=== PATIENT | male | born 1945 | race Caucasian/White ===

== ENCOUNTER 2017-12-18 14:36 | Emergency (ER) | payer OTHER, MEDICARE ==
[~2017-12-18] VITALS: Ht 172.7 cm; Wt 85.0 kg
[2017-12-18 14:52] VITALS: TEMP 36.9; Ht 172.7 cm; Wt 85.0 kg
[2017-12-18] MEDS ORDERED: OXYCODONE HCL IR 5 MG TAB (IMMEDIATE RELEASE) PO STA (15:10)
[2017-12-18] MEDS ORDERED: FLUT0.15 NAE (15:30)
[2017-12-18] MEDS ORDERED: OMEP-331 PO (15:30)
[2017-12-18] MEDS ORDERED: HYDR12.55 PO (15:30)
[2017-12-18] MEDS ORDERED: ATEN50TA8 PO (15:30)
[2017-12-18] MEDS ORDERED: GUAI1TAB55 PO (15:30)
[2017-12-18] MEDS ORDERED: MELO-83 PO (15:30)
[2017-12-18] MEDS ORDERED: AMLO-110 PO (15:30)
[2017-12-18] MEDS ORDERED: ASPI81TA28 PO (15:30)
[2017-12-18] MEDS ORDERED: LOSA100T65 PO (15:30)
--- NOTE | 2017-12-18 16:08 | DIAGNOSTIC IMAGING REPORT ---
L HIP UNILATERAL 2 VIEWS, PELVIS 1 OR 2 VIEW ROUTINE HISTORY: 72 years-old Male L hip pain - s/p YARIEL acute pelvis and left hip pain COMPARISON: None available TECHNIQUE: Single AP view of the pelvis with 2 views of the left hip FINDINGS: PELVIS: The bones appear mildly demineralized. Left hip arthroplasty with satisfactory alignment. Moderate right hip osteoarthritis with degenerative changes also seen within the SI joints and pubic symphysis with severe degenerative changes at L4-L5 and L5-S1. No pelvic ring fracture identified. Phleboliths of the pelvis. LEFT HIP: Left hip arthroplasty without evidence of complication. Mild soft tissue swelling about the left hip without opaque foreign body. Imaged left hemipelvis appears intact. IMPRESSION: 1. Mild soft tissue swelling about the left hip without acute fracture or dislocation. 2. Left hip arthroplasty in satisfactory alignment. The above report was generated using voice recognition software. It may contain grammatical, syntax or spelling errors. Electronically signed by: Fabien Banerjee M.D. 12/18/2017 4:06 PM Dictated Date/Time: 12/18/2017 4:04 PM
--- NOTE | 2017-12-18 16:13 | DIAGNOSTIC IMAGING REPORT ---
R RIBS UNILATERAL WITH PA CHEST HISTORY: 72 years-old Male R rib pain acute right-sided rib pain COMPARISON: None available TECHNIQUE: AP view of the chest with 4 views of the right ribs FINDINGS: There is widening of the mediastinum measuring up to 1.6 cm transversely. Atherosclerosis of the aorta. Lungs are hypoinflated with mild bronchovascular crowding and subsegmental bibasilar atelectasis. No pneumothorax, pleural effusion or overt pulmonary edema. Bones of the chest appear grossly intact. Mild levoscoliosis of the midthoracic spine with severe osteoarthritis about the left shoulders. There are suggested loose bodies about the left axillary recess and right subscapularis recess with suggested calcific tendinosis about the right shoulder rotator cuff. There are acute fractures without significant displacement involving the posterior lateral right 9th and 10th ribs IMPRESSION: 1. Hypoinflation with bibasilar atelectasis and mediastinal widening. 2. Acute fractures of the right posterolateral 9th and 10th ribs without significant displacement or pneumothorax. The above report was generated using voice recognition software. It may contain grammatical, syntax or spelling errors. Electronically signed by: Fabien Banerjee M.D. 12/18/2017 4:11 PM Dictated Date/Time: 12/18/2017 4:06 PM
[2017-12-18] MEDS ORDERED: OXYC1TAB3 PO (17:08)
[2017-12-18 17:46] VITALS: BP 189/99; PULSE 67; O2SAT 98
--- NOTE | 2017-12-18 23:36 | EMERGENCY ROOM VISIT NOTE ---
ED Visit Note First contact with patient: 15:03 I reviewed the patient's past medical history, medications, and visit nursing notes. I discussed the case with the physician bus assistant, examined the patient, and agree with the findings and plan as documented in the physician assistants note.
--- NOTE | 2017-12-19 00:44 | EMERGENCY ROOM VISIT NOTE ---
History First contact with patient: 15:03 Chief Complaint: HIP PAIN Stated Complaint: LEFT HIP PAIN, RIB PAIN History of Present Illness The patient is a 72 year old male who presents to the Emergency Room with complaints of injuries after he stumbled and fell while fly fishing. The patient reports that he turned and is pretty sure that his left hip dislocated. On the patient went down, he fell onto his right side, and complains mostly of right rib pain. He also reports mild right hip pain as well. The patient reports that the pain is worsened with movement and deep breathing. He denies any shortness of breath, chest tightness, back pain, abdominal pain, neck pain or head injury. The patient does not take blood thinners. The patient has a prior history of left hip replacement and right knee replacement. He denies any right knee pain. The patient rates his discomfort a 10 out of 10. Review of Systems HEENT: Denies dizziness, visual problems, hearing loss, tinnitus. Denies difficulty swallowing or oral lesions. PULMONARY: Denies cough, shortness of breath, sputum production or hemoptysis. CARDIOVASCULAR: Denies chest pain, palpitations, dyspnea on exertion, orthopnea or peripheral edema. GASTROINTESTINAL: Denies diarrhea, constipation, nausea, vomiting, or abdominal pain. GENITOURINARY: Denies dysuria, frequency, urgency or nocturia. NEUROLOGIC: Denies history of epilepsy, CVA, TIA or chronic headaches. MUSCULOSKELETAL: History of osteoarthritis. SKIN: Denies rashes or lesions. PSYCHIATRIC: Denies history of depression or mental illness. ENDOCRINE: Denies history of diabetes or thyroid disorders. Past Medical/Surgical History Medical Problems: (1) Hypertension (2) Osteoarthritis Surgical Problems: (1) History of left hip replacement (2) History of right knee joint replacement Family History FH: hypertension FH: lung disease Social History Smoking Status: Never Smoker Alcohol Use: occasionally Marital Status: Occupation Status: retired Current/Historical Medications Scheduled Amlodipine (Norvasc), 5 MG PO DAILY Aspirin (Aspirin Ec), 81 MG PO DAILY Atenolol (Tenormin), 50 MG PO DAILY Fluticasone Propionate (Nasal) (Flonase Allergy Relief), 1 SPRAY ALLEN DAILY Guaifenesin Ext Rel (Mucinex Ext Rel), 600 MG PO Q12 Hydrochlorothiazide (Hydrochlorothiazide), 12.5 MG PO DAILY Losartan Potassium (Cozaar), 100 MG PO DAILY Meloxicam (Meloxicam), 15 MG PO DAILY Omeprazole (Omeprazole Dr), 20 MG PO DAILY Scheduled PRN Oxycodone Ir (Roxicodone Ir), 1-2 TAB PO Q4H PRN for Pain Physical Exam Vital Signs Date Time Temp Pulse Resp B/P (MAP) Pulse Ox O2 Delivery O2 Flow Rate FiO2 12/18/17 17:46 67 18 189/99 98 Room Air 12/18/17 14:52 36.9 85 20 180/105 95 Room Air Physical Exam CONSTITUTIONAL: Healthy and well nourished. Alert and oriented X 3 with positive affect. Patient appears in moderate discomfort with pain. HEENT: Normocephalic, atraumatic. Pupils equal, round and reactive. No epistaxis, subconjunctival hemorrhage, raccoon's eyes or flanagan sign. NECK: Full active range of motion without discomfort. RESPIRATORY: Clear to auscultation bilaterally with no wheezing, crackles, rhonchi or stridor. Deep breathing worsens the patient's right rib pain. CARDIOVASCULAR: Regular rate and rhythm with no murmurs, rubs or gallops. GASTROINTESTINAL: Bowel sounds present in all quadrants. Abdomen is soft and nontender to palpation. MUSCULOSKELETAL: Examination shows notable tenderness to palpation over the inferolateral right rib region. No obvious crepitance or subcutaneous emphysema. No flail chest noted. Patient has no tenderness to palpation over the anterior or posterior ribs, costochondral joints or thoracolumbar spine. Patient has negative logroll bilaterally. Pelvis stable with rock. Distal pulses are intact. INTEGUMENTARY: No rash or other significant dermatologic conditions noted. NEUROLOGIC: Upper and lower extremities are sensory intact. Medical Decision & Procedures ER Provider Diagnostic Interpretation: My interpretation of right rib x-rays with a PA chest view shows nondisplaced ninth and 10th right rib fractures. No pneumothorax noted. Widened mediastinum is also appreciated. Radiologist report is as follows: R RIBS UNILATERAL WITH PA CHEST HISTORY: 72 years-old Male R rib pain acute right-sided rib pain COMPARISON: None available TECHNIQUE: AP view of the chest with 4 views of the right ribs FINDINGS: There is widening of the mediastinum measuring up to 1.6 cm transversely. Atherosclerosis of the aorta. Lungs are hypoinflated with mild bronchovascular crowding and subsegmental bibasilar atelectasis. No pneumothorax, pleural effusion or overt pulmonary edema. Bones of the chest appear grossly intact. Mild levoscoliosis of the midthoracic spine with severe osteoarthritis about the left shoulders. There are suggested loose bodies about the left axillary recess and right subscapularis recess with suggested calcific tendinosis about the right shoulder rotator cuff. There are acute fractures without significant displacement involving the posterior lateral right 9th and 10th ribs IMPRESSION: 1. Hypoinflation with bibasilar atelectasis and mediastinal widening. 2. Acute fractures of the right posterolateral 9th and 10th ribs without significant displacement or pneumothorax. My interpretation of pelvis x-rays does not show any obvious pelvic fractures or hip fractures. My interpretation of left hip x-rays also does not show any acute periprosthetic fractures, joint dislocation or other concerning findings. Radiologist reports were also reviewed with concurrence. Medications Administered Medications (Trade) Dose Ordered Sig/Cecil Route Start Time Stop Time Status Last Admin Dose Admin Oxycodone HCl (Roxicodone Immediate Rel Tab) 5 mg NOW STAT PO 12/18/17 15:10 12/18/17 15:12 DC 12/18/17 15:21 5 MG ED Course Patient history and physical exam were performed. Nurse's notes were reviewed. Vital signs were reviewed. Blood pressure is elevated at 180/105. O2 saturation on room air is normal. Heart rate is also normal. The patient was offered analgesics. Patient requested a pill, and was therefore administered OxyIR 5 mg for pain. X-rays of the right ribs with a PA chest view shows posterior lateral ninth and 10th rib fractures. No pneumothorax or consolidations noted. The patient does have a widened mediastinum. Pelvis and left hip x-rays were normal. The patient was dispensed a walker and was able to ambulate without difficulty. The patient was also provided ice packs and an incentive spirometer with instructions for use. The patient was also provided a prescription for OxyIR as needed for pain. The patient was instructed to avoid drinking or driving while taking OxyIR. The patient will follow up with his orthopedic surgeon for further orthopedic reevaluation. The patient was also instructed to follow-up with his PCP for further management of his fractures, and to discuss the need for any further radiographic workup for his widened mediastinum. He was also instructed to have his blood pressure rechecked as it was elevated in the emergency department. The [place] Prescription Drug Monitoring Program was queried for the [facility], showing no concerning red flags. The patient will be provided a prescription for OxyIR 5 mg, dispense #24 with no refills. Patient was instructed to refrain from drinking or driving while taking this medication. The patient was also seen and examined by Dr. Mg, ED attending physician, who agrees with workup and plan of care. Medical Decision [place] Drug Monitoring Program Search Results: patient reviewed within database, no issues identified Blood Pressure Screening Patient's blood pressure: Elevated blood pressure Blood pressure disposition: Referred to PCP Impression Primary Impression: Multiple rib fractures Additional Impression: Left hip pain Departure Information Prescriptions Oxycodone Ir (Roxicodone Ir) 5 Mg Tab 1-2 TAB PO Q4H Y for Pain, #15 TAB For Initial Treatment Prov: Blanco Braun PA 12/18/17 Patient Instructions My [facility] Problem Qualifiers Primary Impression: Multiple rib fractures Encounter type: initial encounter Fracture type: closed Laterality: right Qualified Codes: S22.41XA - Multiple fractures of ribs, right side, initial encounter for closed fracture
== END 2017-12-18 18:17 | disposition home or self-care (01) ==
LOC: C.EDB 14:37 → C.EDD 18:17
DX: S22.41XA Multiple fractures of ribs, right side, initial encounter for closed fracture (principal); W01.0XXA Fall on same level from slipping, tripping and stumbling without subsequent striking against object, initial encounter; M25.552 Pain in left hip; J98.59 Other diseases of mediastinum, not elsewhere classified; M19.90 Unspecified osteoarthritis, unspecified site; I10 Essential (primary) hypertension; Z96.642 Presence of left artificial hip joint; Z96.651 Presence of right artificial knee joint; Z79.82 Long term (current) use of aspirin; Z79.899 Other long term (current) drug therapy; Z79.52 Long term (current) use of systemic steroids